=== PATIENT | male | born 1985 | race Caucasian/White ===

== ENCOUNTER 2021-03-12 19:43 | Emergency (ER) | payer OTHER, SELFPAY ==
[2021-03-12 19:45] VITALS: BP 118/69; PULSE 66; RESP 16; TEMP 36.6; O2SAT 100
--- NOTE | 2021-03-12 20:06 | ED.DENTAL ---
HPI - Dental/Oral General Chief complaint: Dental/Oral Stated complaint: tooth pain Time Seen by Provider: 03/12/21 20:00 Source: patient and RN notes reviewed Mode of arrival: ambulatory Limitations: no limitations History of Present Illness HPI Narrative: 35-year-old male history of poor dentition presents to the emergency department for evaluation of left lower dental pain has been worsening over the last few days but acutely worsened today. Patient states he has been treating his pain with Tylenol and Xanax. Patient does have a dental appointment scheduled for Monday. Related Data Allergies Allergy/AdvReac Type Severity Reaction Status Date / Time No Known Allergies Allergy Verified 03/12/21 19:48 Review of Systems Review of Systems: CONSTITUTIONAL: Denies fever, chills, or sweats. EYES: Denies visual changes, redness, or discharge. ENT: Worsening left-sided dental pain. CARDIOVASCULAR: Denies chest pain, palpitations, or edema. RESPIRATORY: Denies cough or dyspnea. GASTROINTESTINAL: Denies abdominal pain, nausea, vomiting, or diarrhea. GENITOURINARY: Denies dysuria or hematuria. SKIN: Denies rash or itching. MUSCULOSKELETAL: Denies back pain, joint pain, or myalgia. NEUROLOGIC: Denies headache, numbness, or weakness. PSYCHIATRIC: Denies anxiety or depression. PMFSH Social History Social History Alcohol intake: current Exam Narrative: APPEARANCE: Well appearing, no pain, no distress, well-nourished. HEAD: normocephalic, atraumatic. EYES: PERRLA/EOMI, conjunctivae clear. NOSE: Normal no drainage EARS:TMS clear with good light reflex. THROAT: Pharynx clear, no exudate. NECK: Supple. No adenopathy, no masses. RESPIRATORY: Airway patent, respirations nonlabored. Clear to auscultation bilaterally, no rales, rhonchi, wheezing. CARDIOVASCULAR: Regular rate and rhythm without murmurs rubs or gallops. ABDOMINAL: Soft, nontender, nondistended, normal bowel sounds MUSCULOSKELETAL: Moves all extremities. Strength/ROM intact, No edema, No calf tenderness. NEURO: Alert. Cranial nerves II through XII intact. Good gait. Good coordination SKIN: Warm, dry. Normal Color PSYCHIATRIC: Normal affect/mood. Course Course Emergency Course: Patient was started on antibiotics while in the emergency room. Patient was encouraged to continue to follow-up with his dentist as scheduled. All questions concerns were addressed. Patient was in no distress at time of discharge from emergency department. Vital Signs Vital signs: Vital Signs Temperature 97.8 F 03/12/21 19:45 Pulse Rate 66 03/12/21 19:45 Respiratory Rate 16 03/12/21 19:45 Blood Pressure 118/69 03/12/21 19:45 Pulse Oximetry 100 03/12/21 19:45 Temperature 97.8 F 03/12/21 19:45 Pulse Rate 66 03/12/21 19:45 Respiratory Rate 16 03/12/21 19:45 Blood Pressure 118/69 03/12/21 19:45 Pulse Oximetry 100 03/12/21 19:45 Discharge Plan Discharge Clinical Impression: Dental caries, Toothache Patient Disposition: Home, Self-Care Condition: Stable Instructions: Antibiotic Form, Toothache (ED) Additional Instructions: Tylenol and ibuprofen for pain control. Antibiotic as directed until completed. Continue to have close follow-up with your dentist as scheduled on Monday. Prescriptions: New amoxicillin-pot clavulanate 875-125 mg tablet 1 tablet PO Q12H Qty: 14 RF: 0 Follow-up/Referrals: UNKNOWN,DOCTOR [Non-Staff] -
[2021-03-12] MEDS: AMOXICILLIN/CLAVULANATE K 875-125 MG TAB 1 TABLET PO (20:08)
== END 2021-03-12 20:27 | disposition home or self-care (01) ==
LOC: ANHED 20:14
PROVIDERS: Emergency Provider Emergency Medicine
DX: K02.9 Dental caries, unspecified (principal)
CPT/HCPCS: 99283; A9270

== ENCOUNTER 2021-03-22 10:08 | Emergency (ER) | payer OTHER, SELFPAY ==
--- NOTE | 2021-03-22 10:10 | ED.DENTAL ---
HPI - Dental/Oral General Chief complaint: Dental/Oral Stated complaint: Dry Tooth Socket Time Seen by Provider: 03/22/21 10:16 Source: patient, RN notes reviewed and old records reviewed Mode of arrival: ambulatory Limitations: no limitations History of Present Illness HPI Narrative: 35-year-old male presents to the [facility] with complaints of tooth pain. Was seen on 12 March, 10 days ago in the ER and started on antibiotics. Reports having a tooth pulled a week ago. Was concerned because a small piece of the clot fell out, denies pain Patient is currently a smoker and did not stop after having his tooth removed. Patient was concern for dry sockets. MD Complaint: tooth pain Related Data Allergies Allergy/AdvReac Type Severity Reaction Status Date / Time No Known Allergies Allergy Verified 03/12/21 19:48 Review of Systems Review of Systems: All systems reviewed & are unremarkable except as noted in HPI and below Constitutional: Constitutional: Reports no additional constitutional complaints, Denies chills and Denies fever(s) Eyes: Eyes: Reports no additional eye complaints ENT: Reports as per HPI Comments: Concern for dry socket left lower molar Cardiovascular: Cardiovascular: Reports no additional cardiovascular complaints, Denies chest pain and Denies dyspnea Respiratory: Respiratory: Reports no additional respiratory complaints, Denies cough and Denies dyspnea Gastrointestinal: Gastrointestinal: Denies no additional gastrointestinal complaints Musculoskeletal: Musculoskeletal: Reports no additional musculoskeletal complaints Integumentary/Breasts: Skin/Breast: Reports system reviewed and no additional complaints, except as docu Neurologic: Reports system reviewed and no additional complaints, except as documented Psychiatric: Psychiatric: Reports no additional psychiatric complaints Allergic/Immunologic: Allergic/Immunologic: Reports no additional allergic/immunologic complaints [facility] Past Medical History Medical History (Updated 03/22/21 @ 10:28 by Pauline Hogan) No significant medical problems Surgical History Surgical History (Updated 03/22/21 @ 10:25 by Pauline Hogan) No pertinent past surgical history Social History Social History (Updated 03/22/21 @ 10:25 by Pauline Hogan) Smoking status: Current some day smoker Tobacco type: cigarettes Alcohol intake: current Living arrangements: with family Gender identity (if verbalized by the patient): Male Comments At the time of my signature, I reviewed and agree with the nursing past medical, surgical, social, and family history. There is no relevant family history pertinent to the patient complaint. Exam Const: General: healthy appearing, no acute distress and alert Nutritional Appearance: well nourished Orientation/consciousness: patient oriented x3 Limitations: no limitations HENMT: Head: normal to inspection Ears: external ears normal, TM's normal bilaterally and EAC's normal General nose exam: Normal external nose present and Normal nasal mucous membranes and turbinates present Face and sinus: normal facial exam Mouth: Yes Normal oral and palatal mucosa present Teeth and gingiva: poor dentition Teeth image: 1. Extracted tooth without signs of infection or inflammation Throat: posterior oropharynx normal, tonsils normal and uvula midline Eyes: Conjunctivae: conjunctivae normal Pupils: Equal, round and reactive pupils present Neck: Neck: normal visual inspection, no lymphadenopathy and no meningeal signs Chest: Chest palpation & inspection: normal inspection of the chest Resp: Effort & Inspection: normal respiratory effort Auscultation: clear to auscultation bilaterally Cardio: Rate: regular rate Rhythm: regular rhythm Back/Spine/Pelvis: Back: no CVA tenderness Skin: General skin exam: normal color Rashes: no rashes Wounds: no wounds Neuro: General: patient oriented x3, moves all extremities, no
[2021-03-22 10:17] VITALS: BP 93/53; PULSE 66; RESP 18; TEMP 35.7; O2SAT 100
[2021-03-22 10:23] VITALS: BP 98/58
== END 2021-03-22 10:30 | disposition home or self-care (01) ==
PROVIDERS: Emergency Provider Nurse Practitioner
DX: K08.89 Other specified disorders of teeth and supporting structures (principal); F17.210 Nicotine dependence, cigarettes, uncomplicated
CPT/HCPCS: 99211; 99213; G0463

== ENCOUNTER 2021-11-21 14:36 | Emergency (ER) | payer OTHER, SELFPAY ==
[2021-11-21 14:46] VITALS: BP 116/68; PULSE 89; RESP 16; TEMP 38.1; O2SAT 99
--- NOTE | 2021-11-21 14:55 | ED.URI ---
HPI - URI/Sore Throat General Chief Complaint: Upper Respiratory Infection Stated Complaint: Fever,Cough,SOB Time Seen by Provider: 11/21/21 15:25 Source: patient and RN notes reviewed Mode of arrival: ambulatory Limitations: no limitations History of Present Illness HPI Narrative: 36-year-old male presents concern for 3-week history of cough, fever, shortness of breath. He reports nasal congestion and rhinorrhea. He denies ear pain or sore throat. Reports coughing fits, episodic shortness of breath MD elicited complaint: cough Related Data Home Medications Medication Instructions Recorded Confirmed risperidone 1 mg tablet 1 mg PO DAILY 11/21/21 11/21/21 Allergies Allergy/AdvReac Type Severity Reaction Status Date / Time No Known Allergies Allergy Verified 11/21/21 14:49 Review of Systems Review of Systems: CONSTITUTIONAL: Reports malaise, fever. EYES: Denies visual changes, redness, or discharge. ENT: Reports rhinorrhea, congestion. Denies sinus pain, otalgia and sore throat. CARDIOVASCULAR: Denies chest pain, palpitations, or edema. RESPIRATORY: Reports cough, episodic dyspnea. GASTROINTESTINAL: Denies abdominal pain, nausea, vomiting, diarrhea SKIN: Denies rash or itching. MUSCULOSKELETAL: Denies myalgia. NEUROLOGIC: Denies headache. All systems reviewed & are unremarkable except as noted in HPI and below PMFSH Past Medical History Medical History (Updated 11/21/21 @ 15:34 by Pauline Davis NP) No significant medical problems Surgical History Surgical History (Updated 03/22/21 @ 10:25 by Pauline Hogan APRN) No pertinent past surgical history Social History Social History (Updated 03/22/21 @ 10:25 by Pauline Hogan APRN) Smoking status: Current some day smoker Tobacco type: cigarettes Alcohol intake: current Gender identity (if verbalized by the patient): Male Comments At time of signature, agree with nursing past medical, surgical, social and family history. There is no relevant family history pertinent to the presenting complaint Exam Narrative: GENERAL: Nontoxic appearing and in no acute distress. HEAD: Normocephalic EYES: PERRLA, conjunctivae clear ENT: Nares clear, clear discharge. Mucous membranes moist. TM pearly alfred with dull light reflex bilaterally; no tragal tenderness. Oropharynx not erythematous without lesions. Tonsils not enlarged and without exudate, no drooling, no hoarseness, no trismus, uvula midline. NECK: Supple. No lymphadenopathy CHEST: Clear to auscultation, breath sounds equal. No wheezing, rhonchi, rales, or stridor. No respiratory distress, speaks in full sentences. Cough noted HEART: Regular rate and rhythm. No murmur heard. SKIN: Warm, dry, no rash. NEURO: Alert and oriented x3. PSYCH: Normal mood and affect Course Course Emergency Course: Patient is aware of diagnosis, understands and agrees to treatment plan. Anticipatory guidance given. Patient agrees to follow-up as directed and is aware of reasons to seek care at the emergency department. Portions of this record may have been created with voice recognition software Level of Care: Express Care Visit Vital Signs Vital signs: Vital Signs Temperature 100.5 F H 11/21/21 14:46 Pulse Rate 89 11/21/21 14:46 Respiratory Rate 16 11/21/21 14:46 Blood Pressure 116/68 11/21/21 14:46 Pulse Oximetry 99 11/21/21 14:46 Oxygen Delivery Room Air 11/21/21 14:46 Temperature 100.5 F H 11/21/21 14:46 Pulse Rate 89 11/21/21 14:46 Respiratory Rate 16 11/21/21 14:46 Blood Pressure 116/68 11/21/21 14:46 Pulse Oximetry 99 11/21/21 14:46 Oxygen Delivery Room Air 11/21/21 14:46 Reviewed. MDM - URI/Sore Throat MDM Narrative Medical decision making narrative: Differential diagnosis considered: Samano virus, strep pharyngitis, allergic rhinitis, upper respiratory tract infection, sinusitis, rhinosinusitis, nasopharyngitis. 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
== END 2021-11-21 15:36 | disposition home or self-care (01) ==
PROVIDERS: Emergency Provider Nurse Practitioner
DX: J40 Bronchitis, not specified as acute or chronic (principal); F17.210 Nicotine dependence, cigarettes, uncomplicated; F31.9 Bipolar disorder, unspecified
CPT/HCPCS: 99213; G0463

== ENCOUNTER 2022-09-20 08:33 | Outpatient (CLI) | payer OTHER, SELFPAY ==
[2022-09-20 19:39] LABS: Kit Draw Collected
== END 2022-09-20 08:34 | disposition home or self-care (01) ==
LOC: ANHGOSHLAB 08:36
PROVIDERS: PCP Family Medicine; Visit Provider Nurse Practitioner Family
DX: Z13.6 Encounter for screening for cardiovascular disorders (principal); Z13.220 Encounter for screening for lipoid disorders; R53.83 Other fatigue; R42 Dizziness and giddiness; E55.9 Vitamin D deficiency, unspecified
CPT/HCPCS: 36415

== ENCOUNTER 2023-12-20 11:57 | Emergency (ER) | payer MEDICAID, SELFPAY ==
--- NOTE | 2023-12-20 12:01 | ED.SOB ---
HPI - SOB/Dyspnea General Stated Complaint: Low B/P, SOB Time Seen by Provider: 12/20/23 12:10 Source: patient Mode of arrival: ambulatory Limitations: no limitations History of Present Illness HPI Narrative: Uriel is a 38-year-old male patient presenting to the clinic today with complaints of possible low blood pressure, feeling unsteady on his feet, and feeling shortness of breath when standing. He reports symptoms started this morning when he woke up. Was out drinking last night and had a couple beers and a couple shots. Did have some nausea this morning as well. Feels hung over from drinking. Reports that his symptoms have improved since he has been in the clinic today. Did have to call off work today. Related Data Allergies Allergy/AdvReac Type Severity Reaction Status Date / Time No Known Allergies Allergy Verified 12/20/23 12:11 Review of Systems Review of Systems: Pertinent positives per HPI. Patient denies any fever, chills, rash, headache, visual changes, cough, runny nose, sore throat, chest pain, palpitations, nausea, vomiting, diarrhea, constipation, abdominal pain, or any urinary issues. PMFSH Past Medical History Medical History Bipolar disorder Erectile dysfunction Fatigue Hypotension Light-headed feeling Vitamin D deficiency, unspecified Surgical History Surgical History No pertinent past surgical history Social History Social History Social History: Caffeine-coffee/tea/soda Smoking status: Never smoker Tobacco type: e-cigarettes/vaping Alcohol intake: current Lack of Transportation: No Lack of Food: Never True Current Housing: I Have Housing Concerned About Future Housing: No Difficulty Paying Gas/Electric Bills: No Difficulty Paying for Meds: No Currently Unemployed: No Education: High School Diploma/GED Difficulty w/ Childcare or Family Care: No Living arrangements: with family Gender identity (if verbalized by the patient): Male Comments At the time of my signature, I reviewed and agree with the nursing past medical, surgical, social, and family history. There is no relevant family history pertinent to the patient complaint. Exam Narrative: General: Well-developed, well nourished, in no apparent distress Head: Normocephalic, atraumatic Eyes: Pupils equally round and reactive to light bilaterally, EOM intact, sclera and conjunctive clear, no discharge, lids normal Ears: TMs intact and clear, ear canals clear, no drainage, grossly hearing normal. Nose: Nares patent, no discharge, no inflammation, no sinus tenderness. Mouth: Oropharynx without lesions or masses, good dentition, MMM. Tongue midline, even rise and fall of uvula Neck: Supple, trachea midline, no enlargement of anterior or posterior cervical nodes, no thyroid masses or goiter palpable. Cardio: Regular rate and rhythm, s1 and s2 normal, no murmur appreciated. Resp: Clear to auscultation bilaterally anteriorly and posteriorly, no rhonchi, rales, wheezing or rubs Musculoskeletal: No deformity, non-tender to palpation, grossly normal range of motion, muscle strength strong and equal, peripheral pulse strong, no edema, no cyanosis, normal gait and station Neuro: Alert and oriented x4 with normal speech, no focal deficits, cranial nerves I through XII intact, muscle strength 5 out of 5, sensation intact bilaterally, negative Romberg test Course Course Emergency Course: Portions of this record may have been created with voice recognition software. Level of Care: Express Care Visit Vital Signs Vital signs: Vital signs reviewed MDM - SOB/Dyspnea MDM Narrative Medical decision making narrative: At the time of visit patient is resting comfortably on the exam table. Patient appears to be nontoxic. Orthostatic pressures: Within normal limits Plan: I suspect patient has likely mild dehydration from alcohol use. He declined having EKG, chest x-ray, or urinalysis in the clinic today. States that his symptoms are improving and he would like to be discharged. Supportive measures were discussed with the patient and they voiced understanding discharge instructions and agrees to treatment plan. Return precautions reviewed Differential Diagnosis Differential diagnosis: Likely acute exacerbation of chronic obstructive airways disease, congestive heart failure, community acquired pneumonia, asthma with exacerbation, pulmonary embolism and other (COVID) Discharge Plan Discharge Clinical Impression: Shortness of breath, Alcohol use, Light-headed feeling Patient Disposition: Home, Self-Care Condition: Stable Instructions: Antibiotic Form, Dyspnea (ED) Additional Instructions: Orthostatic blood pressures within normal limits You declined EKG, urine testing, and chest x-ray in the clinic today. Your symptoms could be caused by mild dehydration from alcohol use. Other differential diagnoses could be anemia, hypovolemia, STEMI, non STEMI, vertigo, brain tumor, or TIA Increase fluids and stay well hydrated Change positions slowly Eat well-balanced meals Follow-up with your PCP in 2-3 days if symptoms persist or go to the emergency room if symptoms worsen Prescriptions: No Action aripiprazole [Abilify] 5 mg tablet 5 mg PO DAILY Qty: 90 2RF Follow-up/Referrals: Edwina Joiner MD [Primary Care Provider] - Time of Disposition: 12:28 Quality NIHSS Nursing Documentation ED NIHSS nursing documentation: reviewed/agree
[2023-12-20 12:06] VITALS: BP 113/71; PULSE 91; RESP 19; TEMP 36.8; O2SAT 100
[2023-12-20 12:15] VITALS: BP 106/61; PULSE 85
[2023-12-20 12:18] VITALS: BP 104/61; PULSE 82
== END 2023-12-20 12:35 | disposition home or self-care (01) ==
PROVIDERS: Emergency Provider Nurse Practitioner Family; PCP Family Medicine
DX: R06.02 Shortness of breath (principal); F10.90 Alcohol use, unspecified, uncomplicated; R42 Dizziness and giddiness; F17.290 Nicotine dependence, other tobacco product, uncomplicated
CPT/HCPCS: 99211; G0463